=== PATIENT | female | born 1945 | race Caucasian/White ===

== ENCOUNTER 2017-08-01 09:08 | Day surgery (SDC) | payer BC, OTHER ==
[~2017-08-01] VITALS: Ht 172.7 cm; Wt 74.8 kg
[~2017-08-01 09:08] MED LIST: CLINDAMYCIN PHOS 600 MG/ D5W 50 ML PREMIX IV ONE
[2017-08-01] MEDS ORDERED: D5/0.45 NS 1,000 ML IV SCH ×2 (09:56→15:08)
[2017-08-01] MEDS ORDERED: HYDROcodone/ACETAMIN 5-325 MG TAB (NORCO/ VICODIN) PO PRN ×4 (10:00→15:15)
[2017-08-01] MEDS ORDERED: HYDROmorphone 2 MG/ML VIAL IVP PRN ×2 (10:00→15:15)
[2017-08-01] MEDS ORDERED: NS IRRIG SOLN 1000 ML IR ONE (13:45)
[2017-08-01] MEDS ORDERED: SEVOFLURANE 15 MIN GAS INH ONE (13:45)
[2017-08-01] MEDS ORDERED: PROPOFOL 200MG/ 20ML VIAL (DIPRIVAN) IV ONE (13:45)
[2017-08-01] MEDS ORDERED: LR 1,000 ML IV.SOLN IV ONE (13:45)
[2017-08-01] MEDS ORDERED: MIDAZOLAM HCL 5 MG/5 ML VIAL IVP ONE (13:45)
[2017-08-01] MEDS ORDERED: ONDANSETRON HCL 4 MG/2 ML VIAL IVP ONE (13:45)
[2017-08-01] MEDS ORDERED: fentaNYL CITRATE/PF 100 MCG/2 ML AMP IVP ONE (13:45)
[2017-08-01] MEDS ORDERED: MIVACURIUM CHLORIDE 20 MG/10 ML VIAL (MIVACRON) INJ ONE (13:45)
[2017-08-01] MEDS ORDERED: ISOSULFAN BLUE 5 ML VIAL (LYMPHAZURIN) INJ ONE (13:45)
[2017-08-01] MEDS ORDERED: BUPIVACAINE /PF 0.25% 30 ML VIAL INJ ONE (13:45)
[2017-08-01] MEDS ORDERED: LR 1,000 ML IV SCH (14:26)
[2017-08-01] MEDS ORDERED: METOCLOPRAMIDE HCL 10 MG/2 ML VIAL IVP PRN (14:30)
[2017-08-01] MEDS ORDERED: MORPHINE 4 MG/ML INJ. SYRINGE IVP PRN ×3 (14:30)
[2017-08-01 17:18] VITALS: BP_SYST 132
== END 2017-08-01 17:10 | disposition home or self-care (01) ==
LOC: SMU 09:08 → SDS 09:08
PROVIDERS: ATTEND Colon & Rectal Surgery
DX: C50.912 Malignant neoplasm of unspecified site of left female breast (principal); D36.0 Benign neoplasm of lymph nodes; E78.1 Pure hyperglyceridemia; E03.9 Hypothyroidism, unspecified; Z98.890 Other specified postprocedural states; Z80.3 Family history of malignant neoplasm of breast; Z80.8 Family history of malignant neoplasm of other organs or systems; Z88.0 Allergy status to penicillin; Z88.8 Allergy status to other drugs, medicaments and biological substances; Z79.899 Other long term (current) drug therapy; E27.5 Adrenomedullary hyperfunction
CPT/HCPCS: 19081; 19281; 19302; 78195; 88305; 88307; 88342; A9541; J2250; J2405; J2704; J3010; J3490 ×2; J7120; Q9968; 76098-TC

== ENCOUNTER 2020-08-18 07:34 | Day surgery (SDC) | payer OTHER, SELFPAY ==
[~2020-08-18] VITALS: Ht 172.7 cm; Wt 76.2 kg
[2020-08-18] MEDS ORDERED: CLINDAMYCIN PHOS 900 MG/ D5W 50 ML PREMIX IV ONE (09:30)
[2020-08-18] MEDS ORDERED: ONDANSETRON HCL 4 MG/2 ML VIAL IVP ONE (10:57)
[2020-08-18] MEDS ORDERED: LR 500 ML IV.SOLN IV ONE (10:57)
[2020-08-18] MEDS ORDERED: BUPIVACAINE /EPINEPHRINE/PF 0.25% 30 ML VIAL INJ ONE (10:57)
[2020-08-18] MEDS ORDERED: PROPOFOL 200MG/ 20ML VIAL (DIPRIVAN) IV ONE (10:57)
[2020-08-18] MEDS ORDERED: NS IRRIG SOLN 1000 ML IR ONE (10:57)
[2020-08-18] MEDS ORDERED: MIDAZOLAM HCL 5 MG/5 ML VIAL IVP ONE (10:57)
[2020-08-18] MEDS ORDERED: SEVOFLURANE 15 MIN GAS INH ONE (10:57)
[2020-08-18] MEDS ORDERED: fentaNYL CITRATE/PF 100 MCG/2 ML AMP IVP ONE (10:57)
[2020-08-18] MEDS ORDERED: HYDROmorphone 1 MG/ML INJ. CARTRIDGE IVP PRN ×2 (11:45)
[2020-08-18] MEDS ORDERED: ONDANSETRON HCL 4 MG/2 ML VIAL IVP PRN (11:45)
[2020-08-18] MEDS ORDERED: LR 1,000 ML IV SCH (11:45)
[2020-08-18] MEDS ORDERED: MEPERIDINE HCL/PF 25 MG/ML DISP.SYRIN IVP PRN (11:45)
[2020-08-18] MEDS ORDERED: METOCLOPRAMIDE HCL 10 MG/2 ML VIAL IVP PRN (11:45)
[2020-08-18] MEDS ORDERED: MIDAZOLAM HCL 2 MG/2 ML VIAL (VERSED) IVP PRN (11:45)
[2020-08-18] MEDS ORDERED: HYDROcodone/ACETAMIN 5-325 MG TAB (NORCO/ VICODIN) PO PRN (12:15)
[2020-08-18] MEDS ORDERED: D5/0.45 NS 1,000 ML IV SCH (12:15)
[2020-08-18] MEDS ORDERED: ONDANSETRON HCL 4 MG/2 ML VIAL ONE (13:05)
[2020-08-18 17:11] VITALS: BP_SYST 116
== END 2020-08-18 13:50 | disposition home or self-care (01) ==
LOC: SDS 07:34
PROVIDERS: ATTEND Colon & Rectal Surgery
DX: C50.911 Malignant neoplasm of unspecified site of right female breast (principal); N64.89 Other specified disorders of breast; I50.30 Unspecified diastolic (congestive) heart failure; E78.1 Pure hyperglyceridemia; E03.9 Hypothyroidism, unspecified; L30.9 Dermatitis, unspecified; Z88.0 Allergy status to penicillin; Z88.8 Allergy status to other drugs, medicaments and biological substances; Z79.899 Other long term (current) drug therapy
CPT/HCPCS: 19301; 88307; J2250; J2405; J2704; J3010; J3490 ×2; J7120; 88305